=== PATIENT | female | born 1955 | race Two or more races ===

== ENCOUNTER 2024-04-08 06:13 | Day surgery (SDC) | payer OTHER ==
[2024-04-08] MEDS ORDERED: MIDAZOLAM HCL 2 MG/2 ML VIAL IV ONE (09:00)
[2024-04-08] MEDS ORDERED: DIPHENHYDRAMINE HCL 50 MG/ML VIAL 1ML IV ONE (09:00)
[2024-04-08] MEDS ORDERED: fentaNYL CITRATE 50 MCG/ML AMPUL IV PUSH ONE (09:00)
== END 2024-04-08 10:30 | disposition home or self-care (01) ==
LOC: AMB-ENDOS 06:13
PROVIDERS: ATTEND Colon & Rectal Surgery
DX: K63.5 Polyp of colon (principal); K57.30 Diverticulosis of large intestine without perforation or abscess without bleeding

== ENCOUNTER 2024-05-30 08:44 | Outpatient (CLI) | payer OTHER | END 2024-05-30 08:51 | disposition home or self-care (01) | LOC: RAD 08:44 | PROVIDERS: ATTEND Surgery | DX: K57.20 Diverticulitis of large intestine with perforation and abscess without bleeding (principal); K58.9 Irritable bowel syndrome, unspecified; I10 Essential (primary) hypertension ==